=== PATIENT | male | born 1990 | race Caucasian/White ===

== ENCOUNTER 2016-09-26 19:07 | Emergency (ER) | payer BC ==
[2016-09-26] MEDS ORDERED: Lidocaine 1% 10 MG/ML - 20 ML VIAL SUBCUT ONE (19:41)
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
[2016-09-27 01:13] VITALS: RESP 16; TEMP 96.7
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
== END 2016-09-26 20:50 | disposition home or self-care (01) ==
LOC: ER 19:07
DX: S01.01XA Laceration without foreign body of scalp, initial encounter (principal); W21.11XA Struck by baseball bat, initial encounter; Y93.64 Activity, baseball
CPT/HCPCS: 12002; 70450; 99282; J2001